=== PATIENT | female | born 1985 | race Hispanic/Latino ===

== ENCOUNTER 2018-07-22 20:05 | Inpatient (IN) | payer OTHER ==
[2018-07-22 20:13] VITALS: BMI 29.2
[2018-07-22 21:24] VITALS: O2SAT 100
[2018-07-22] MEDS ORDERED: Oxytocin 30 UNIT 30 UNITS/500 ML BAG IV ONE (21:25)
[2018-07-22] MEDS ORDERED: OXYTOCIN/0.9 % NS 20 UNIT/1,000 ML BAG IV SCH (21:30)
[2018-07-22 21:56] LABS: BASO % 0.3 % (0.0-2.0); EOS % 0.4 % (0.0-4.0); HEMOGLOBIN 13.3 g/dL (12.0-16.0); LYMPH # 1.9 K/uL (1.0-4.3); LYMPH % 14.6 % (20.0-40.0); MEAN CELL VOLUME 93.3 fl (81.0-99.0); MEAN CORPUSCULAR HEMOGLOBIN 31.7 pg (27.0-31.0); MEAN CORPUSCULAR HGB CONC 33.9 g/dL (33.0-37.0); MEAN PLATELET VOLUME 9.8 fl (7.2-11.7); MONO # 0.9 K/uL (0.0-0.8); MONO % 6.7 % (0.0-10.0); NEUT # 10.1 K/uL (1.8-7.0); RBC 4.21 Mil/uL (3.80-5.20); RED CELL DISTRIBUTION WIDTH 13.6 % (11.5-14.5)
[2018-07-23] MEDS ORDERED: Lidocaine 1% Inj (20ml) ONE (06:46)
--- NOTE | 2018-07-23 08:37 | OBHP ---
Datetime: 07/22/2018 21:28 FHR - Baseline A Provider: 150 NICHD Variability Prov Fetus A: Moderate 6-25bpm NICHD Accel Fetus A IP Provider: 15X15 FHR Category Provider Fetus A: Category I NICHD Decel Fetus A IP Provider: None Datetime: 07/22/2018 20:44 IP Admit Plan: Admit to unit; Initiate labor induction protocol Pelvic Type - PN: Adequate Extremities - PN: Normal Abdomen - PN: Normal Back - PN: Normal Breast - PN: Not Done Lungs - PN: Normal Heart - PN: Normal Thyroid - PN: Not Done Neurologic - PN: Not Done HEENT - PN: Not Done General - PN: Normal EGA AdmitDate IP: 40.3 Vital Signs Provider: Reviewed; Within Normal Limits IP Indication for Induction: Postterm IP Chief Complaint: Scheduled induction of labor Genitourinary Exam: Normal DTRs - PN: Not Done Datetime: 07/22/2018 20:21 IP Adm Impression: Postterm, intrauterine ; No Active Labor; Intact Membranes Admit Comment, IP Provider: 33 yo with IUP at 40.3 (PEGGY of 07/19/18) presents today for schedul ed induction of labor secondary to post dates. She reports good movement. Denies vaginal bleedi ng, contractions and loss of fluid per the vagina. Denies chest pain, shortness of breath, fevers, na usea, vomiting or dysuria. Patient follows with Dr. Chi and was given Rhogam 04/24/18. ROS: Systems reviewed and negative except for above. Obhx: HPV 2017, 2013, 2003 = 3 colpos performed and all negative PMH: Denies Family hx: Paternal Aunt with breast cancer in her 70's Social hx: Socially drinks; Denies smoking history or illicit drug use. Surgical hx: Denies Allergies: Denies Medications: PNV daily Labs: ABO: O NEGATIVE Antibody: Negative HIV: negative HbsAg: Unknown GBS: Negative Rubella: Immune RPR: negative Physical exam: In no acute distress. Heart: S1 and S2 appreciated on exam. No murmurs, gallops or rubs. Lungs: Clear air entry bilaterally. Abdomen: Gravid. Soft, non-tender to palpation. Bedside ultrasound: Cephalic positioning. FHT: 120 baseline; Moderate variability; Accelerations present; No decelerations; Category 1 sandeep ng. Assessment: 33 yo with IUP at 40.3 (PEGGY of 07/19/18) admitted for IOL secondary to post-dates . Plan: - Rhogam given 04/24/18 - Reassuring FHT: 135 baseline; Moderate variability; Accelerations present; Category 1 tracing. - Admit to L and D for induction of labor. - F/U Hep B ag - CBC - type and screen - Cervidil 10mg for cervical ripening. Case Discussed with Dr. Sandoval ---Tiffany Morris, PGY1 residential director. OB Hospitalist note. Case rev'd. She was sent in for IOL by PMD. FHR 130's LTV...condition, IOL, medications and pain management disucssed with pt. Her questions answered. MAHNDO Presentation-Admit: Vertex
--- NOTE | 2018-07-23 08:41 | OBPN ---
Datetime: 07/22/2018 21:28 IP Progress Impression Other: Beginning of cervical ripening with Cervidil IP Procedures: Sterile Vag Exam IP Progress Plan: Continue present management; Cervical Ripening FHR - Baseline A Provider: 150 IP Progress Note Comment: S: 33 yo with IUP at 40.3 (PEGGY of 07/19/18) presents today for schedu led induction of labor secondary to post dates.She is in no acute distress at this moment and feels c omfortable. O: Physical exam: In no acute distress. Vaginal exam: Cervidil placed at 9:19 pm. No discomfort noted. FHT: 150 baseline; moderate variability; Accelerations present. No decerlations. Category 1 Assessment: 33 yo with IUP at 40.3 (PEGGY of 07/19/18) admitted for IOL secondary to post-dates . Plan: - Cervidil 10mg placed at this time for cervical ripening. - Reassuring FHT. Case Discussed with Dr. Sandoval ---Tiffany Morris, PGY1 president [employer]. OB Hospitalist on-call...Cervidl placed. Agree with above. TREY CHRISTENSEND Accel Fetus A IP Provider: 15X15 FHR Category Provider Fetus A: Category I NICHD Variability Prov Fetus A: Moderate 6-25bpm NICHD Decel Fetus A IP Provider: None Datetime: 07/22/2018 20:44 Vital Signs Provider: Reviewed; Within Normal Limits Datetime: 07/22/2018 20:21 Presentation-Admit: Vertex
[2018-07-23] MEDS ORDERED: Fentanyl/Bupivacaine HCl 250 ML EPI ONE ×2 (09:12→23:44)
[2018-07-23] MEDS ORDERED: Oxytocin 30 UNIT 30 UNITS/500 ML BAG IV ONE ×2 (12:40→20:54)
[2018-07-23] MEDS ORDERED: OXYTOCIN/0.9 % NS 20 UNIT/1,000 ML BAG IV ONE (20:54)
[2018-07-23] MEDS ORDERED: Oxycodone/Acetaminophen 5/325 mg Tab PO PRN ×2 (20:54→23:44)
[2018-07-23] MEDS ORDERED: Benzocaine/Menthol SPRAY TOP PRN ×2 (20:54→23:44)
--- NOTE | 2018-07-23 21:09 | OBDS ---
DELIVERY PERSONNEL Delivery Doctor: Jorge Chi MD [employer] Supervisor: Jana Figueroa RN Anesthesiologist: Dr Sandra Resident: RAFAL Blanca Fellow MATERNAL INFORMATION Delivery Anesthesia: Epidural Medications in Delivery: Pitocin Placenta Cultured: No Maternal Complications: None LABOR SUMMARY EDC: 07/19/2018 00:00 No. Babies in Womb: 1 Attempted: No Labor Anesthesia: Epidural LABOR INFORMATION Reason for Induction: Postterm Onset of Labor: 07/23/2018 14:15 Complete Dilatation: 07/23/2018 19:11 Cervical Ripening Agents: Cervidil (Annotations: taken out by Dr Blanca [email or web address]) Other Ripening Agents: n/a Oxytocin: Augmentation Group B Beta Strep: Negative Antibiotics # of Doses: 0 Antibiotics Time of Last Dose: 0 Steroids Given: None Reason Steroids Not Administered: Not Applicable MEMBRANES Membranes Rupture Method: Artificial Rupture of Membranes: 07/23/2018 14:15 Length of Rupture (hrs): 6.15 Amniotic Fluid Color: Clear Amniotic Fluid Amount: Moderate Amniotic Fluid Odor: Normal STAGES OF LABOR Stage 1 hrs: 4 Stage 1 min: 56 Stage 2 hrs: 1 Stage 2 min: 13 Stage 3 hrs: 0 Stage 3 min: 5 Total Time in Labor hrs: 6 Total Time in Labor min: 14 VAGINAL DELIVERY Episiotomy: None Laceration Repair: Yes Initial Vag Sponge Count: 15 Final Vag Sponge Count: 15 Initial Vag Sharps Count: 2 Final Vag Sharps Count: 2 Sponge Count Correct: Yes Sharps Count Correct: Yes Count Comment: Count correct BABY A INFORMATION Infant Delivery Date/Time: 07/23/2018 20:24 Method of Delivery: Vaginal Born in Route : No : N/A Forceps: N/A Vacuum Extraction: N/A Shoulder Dystocia : No SHOULDER DYSTOCIA BABY A Infant Delivery Date/Time: 07/23/2018 20:24 PRESENTATION/POSITION BABY A Presentation: Cephalic Cephalic Presentation: Vertex PLACENTA INFORMATION BABY A Placenta Delivery Time : 07/23/2018 20:29 Placenta Method of Delivery: Spontaneous Placenta Status: Delivered SCORES BABY A Heart Rate 1 min: >100 bpm Resp Effort 1 min: Good Cry Reflex Irritability 1 min: Cough or Sneeze or Pulls Away Muscle Tone 1 min: Active Motion Color 1 min: [place], Extremities Blue Resuscitation Effort 1 min: Tactile Stimulation SCORE 1 MIN: 9 Heart Rate 5 min: >100 bpm Resp Effort 5 min: Good Cry Reflex Irritability 5 min: Cough or Sneeze or Pulls Away Muscle Tone 5 min: Active Motion Color 5 min: [place], Extremities Blue Resuscitation Effort 5 min: Tactile Stimulation SCORE 5 MIN: 9 INFORMATION BABY A Gestational Age at Delivery: 40.4 Gestational Status: Term Outcome : Liveborn Condition : Stable Infant Sex: Female IDENTIFICATION/MEDS BABY A ID Band Number: [id number] ID Band Location: Left Leg; Left Arm CORD INFORMATION BABY A No. Cord Vessels: 3 Nuchal Cord : N/A Cord Blood Taken: Yes Suction: None ASSESSMENT BABY A Infant Complications: None Physical Findings at Delivery: Within Normal Limits Respirations: Appears Normal Certified Medical Records Coder/ALS Called : No Care By: Manda Transferred To: Remains with Mother
[2018-07-24 06:14] LABS: BASO # 0.1 K/uL (0.0-0.2); BASO % 0.3 % (0.0-2.0); EOS % 0.1 % (0.0-4.0); HEMOGLOBIN 10.8 g/dL (12.0-16.0); LYMPH # 1.8 K/uL (1.0-4.3); MEAN CELL VOLUME 93.3 fl (81.0-99.0); MEAN CORPUSCULAR HEMOGLOBIN 31.3 pg (27.0-31.0); MEAN CORPUSCULAR HGB CONC 33.6 g/dL (33.0-37.0); MONO # 1.7 K/uL (0.0-0.8); MONO % 6.5 % (0.0-10.0); NEUT # 22.6 K/uL (1.8-7.0); NEUT % 86.1 % (50.0-75.0); PLATELET COUNT 233 K/uL (130-400); RBC 3.43 Mil/uL (3.80-5.20); RED CELL DISTRIBUTION WIDTH 13.9 % (11.5-14.5); WHITE BLOOD COUNT 26.2 K/uL (4.8-10.8)
[2018-07-24 08:39] LABS: BANDS 2 % (0-2); LYMPHOCYTE 8 % (20-50); MONOCYTE 5 % (0-10); NEUTROPHIL 85 % (42-75); TOTAL CELLS COUNTED 100
[2018-07-24 08:40] LABS: PLATELET ESTIMATE NORMAL (NORMAL)
[2018-07-24 08:41] LABS: HYPOCHROMIC SLIGHT
[2018-07-25] MEDS ORDERED: Lansinoh for Breast Feeding Mothers TP ONE (08:35)
--- NOTE | 2018-07-25 16:01 | OBDCSUM ---
Datetime: 07/25/2018 11:05 Discharged to, Provider: Home Follow up at, Provider: [facility] Disch Instr Activity: Normal activity Disch Instr Diet: Regular Discharge Diagnosis, Provider: Term Delivered Discharge Time: 07/25/2018 13:20 Follow up in weeks, Provider: 6 weeks Disch Activity Restrictions: No sexual activity; Nothing in vagina - [place], tampons, douche Discharge Comment, Provider: Given Eugenioam Nov
--- NOTE | 2018-07-25 16:01 | OBPPN ---
Datetime: 07/25/2018 08:00 PP Pain Prov: Within normal limits PP Nausea Prov: Denies PP Flatus Prov: Yes PP BM Prov: Yes PP Breasts Prov: Normal PP Heart Prov: Normal PP Lungs Prov: Normal PP Abdomen/Uterus Prov: Normal PP Lochia Prov: Normal PP Vulva/Perineum Prov: Normal PP CVA Tenderness Prov: Normal PP Extremities Prov: Normal PP Impression Prov: Normal progression PP Plan Prov: Discharge PP Progress Note Prov: She feels fine and ready to go home A; S/P day 2 Rh neg (baby Rh pos) Rhogam given yesterday PLAN: discharge home and follow up in 6w [place] Vital Signs Provider PP: Reviewed; Within Normal Limits
[2018-07-25 19:24] VITALS: BP 119/76; PULSE 81; RESP 20; TEMP 98.5
== END 2018-07-25 13:20 | disposition home or self-care (01) | DRG 807 ==
LOC: H.L&D 20:06 → H.OB/GYN 07-23 22:50
PROVIDERS: ADMIT Obstetrics & Gynecology; ATTEND Obstetrics & Gynecology
PROC: 4A1HXCZ Monitoring of Products of Conception, Cardiac Rate, External Approach (ICD-10-PCS; 2018-07-22)
PROC: 10E0XZZ Delivery of Products of Conception, External Approach (ICD-10-PCS; principal; 2018-07-23)
PROC: 0KQM0ZZ Repair Perineum Muscle, Open Approach (ICD-10-PCS; 2018-07-23)
DX: O48.0 Post-term pregnancy (principal); Z37.0 Single live birth; Z3A.40 40 weeks gestation of pregnancy; O70.1 Second degree perineal laceration during delivery